=== PATIENT | female | born 1980 | race Caucasian/White ===

== ENCOUNTER 2017-11-30 21:05 | Observation (INO) | payer BC ==
--- NOTE | 2017-11-30 21:15 | ED Physician Documentation ---
PD HPI ABD PAIN - Stated complaint Stated Complaint: RLQ PX - Chief complaint Chief Complaint: Abd Pain - History obtained from History obtained from: Patient - History of Present Illness Timing - onset: Enter time (noon today), Today Timing - duration: Hours Timing - details: Gradual onset Pain level now: 5 Quality: Pain Location: RLQ Radiation: Other (no radiation) Improved by: Laying still Worsened by: Moving, Palpation Associated symptoms: Nausea, Dysuria (urinating exacerbates the RLQ pain). No: Fever, Vomiting, Diarrhea, Constipation Similar symptoms before: Has not had sx before Recently seen: Not recently seen - Additional information Additional information: c/o gradual onset generalized abdominal pain since shortly after eating lunch today. Pain has gradually worsened as well as become focused to RLQ Review of Systems Constitutional: reports: Reviewed and negative Eyes: reports: Reviewed and negative Ears: reports: Reviewed and negative Nose: reports: Reviewed and negative Throat: reports: Reviewed and negative Cardiac: reports: Reviewed and negative Respiratory: reports: Reviewed and negative GI: reports: Abdominal Pain, Nausea. denies: Vomiting, Constipation, Diarrhea : reports: Dysuria. denies: Frequency Skin: reports: Reviewed and negative Musculoskeletal: reports: Reviewed and negative Neurologic: reports: Reviewed and negative PD PAST MEDICAL HISTORY - Past Medical History Past Medical History: No - Past Surgical History Past Surgical History: Yes General: Cholecystectomy Other past surgical history: thoracic outlet surgery - Present Medications Home Medications: Ambulatory Orders Medication Instructions Recorded Confirmed No Known Home Medications [No 11/30/17 11/30/17 Known Home Medications] - Allergies Allergies/Adverse Reactions: Allergies Allergy/AdvReac Type Severity Reaction Status Date / Time minocycline Allergy Edema Verified 11/30/17 21:12 erythromycin base AdvReac Emesis Verified 11/30/17 21:12 - Living Situation Living Arrangement: reports: At home - Social History Does the pt smoke?: No PD ED PE NORMAL - Vitals Vital signs reviewed: Yes - General General: Alert and oriented X 3, No acute distress, Well developed/nourished - HEENT HEENT: Moist mucous membranes - Neck Neck: Supple, no meningeal sign - Cardiac Cardiac: RRR, No murmur - Respiratory Respiratory: No respiratory distress, Clear bilaterally - Abdomen Abdomen: Soft, Non distended, Other (RLQ tenderness, (+) Rovsing's sign) - Back Back: No CVA TTP - Derm Derm: Normal color, Warm and dry, No rash - Extremities Extremities: No edema Results - Vitals Vitals: Vital Signs - 24 hr 11/30/17 11/30/17 21:08 22:32 Temperature 37.1 C 37.2 C Heart Rate 99 87 Respiratory 20 16 Rate Blood Pressure 124/81 H 102/70 O2 Saturation 98 100 Oxygen O2 Source Room air - Labs Labs: Laboratory Tests 11/30/17 11/30/17 11/30/17 21:15 21:15 21:20 WBC 15.6 H RBC 4.94 Hgb 14.7 Hct 42.9 MCV 86.7 MCH 29.8 MCHC 34.3 RDW 12.6 Plt Count 303 MPV 8.6 Neut # (Auto) 12.0 H Lymph # (Auto) 2.5 [place] # (Auto) 1.0 Eos # (Auto) 0.1 Baso # (Auto) 0.1 Absolute Nucleated RBC 0.00 Nucleated RBC % 0.0 Sodium Potassium Chloride Carbon Dioxide Anion Gap BUN Creatinine Estimated GFR (MDRD) Glucose Calcium Total Bilirubin AST ALT Alkaline Phosphatase Total Protein Albumin Globulin Albumin/Globulin Ratio Lipase Urine Color LIGHT YELLOW Urine Clarity CLEAR Urine pH 6.0 Ur Specific [place] <=1.005 <=1.005 Urine Protein NEGATIVE Urine Glucose (UA) NEGATIVE Urine Ketones NEGATIVE Urine Occult Blood MODERATE H Urine Nitrite NEGATIVE Urine Bilirubin NEGATIVE Urine Urobilinogen 0.2 (NORMAL) Ur Leukocyte Esterase NEGATIVE Urine RBC 6-10 H Urine WBC 0-3 Ur Squamous Epith Cells MOD Squamous H Urine Bacteria Few Urine Starch PRESENT Ur Microscopic Review INDICATED Urine Culture Comments NOT INDICATED Urine HCG, Qual NEGATIVE 11/30/17 21:20 WBC RBC Hgb Hct MCV MCH MCHC RDW Plt Count MPV Neut # (Auto) Lymph # (Auto) [place] # (Auto) Eos # (Auto) Baso # (Auto) Absolute Nucleated RBC Nucleated RBC % Sodium 136 Potassium 3.5 Chloride 103 Carbon Dioxide 25 Anion Gap 8.0 BUN 11 Creatinine 0.7 Estimated GFR (MDRD) 95 Glucose 96 Calcium 9.3 Total Bilirubin 1.0 AST 15 ALT 11 Alkaline Phosphatase 45 Total Protein 7.7 Albumin 4.6 Globulin 3.1 Albumin/Globulin Ratio 1.5 Lipase 28 Urine Color Urine Clarity Urine pH Ur Specific [place] Urine Protein Urine Glucose (UA) Urine Ketones Urine Occult Blood Urine Nitrite Urine Bilirubin Urine Urobilinogen Ur Leukocyte Esterase Urine RBC Urine WBC Ur Squamous Epith Cells Urine Bacteria Urine Starch Ur Microscopic Review Urine Culture Comments Urine HCG, Qual - Rads (name of study) CT A/P Radiology: Prelim report reviewed, See rad report PD MEDICAL DECISION MAKING - ED course Complexity details: reviewed results, re-evaluated patient, considered differential, d/w patient - Sepsis Event Vital Signs: Vital Signs - 24 hr 11/30/17 11/30/17 21:08 22:32 Temperature 37.1 C 37.2 C Heart Rate 99 87 Respiratory 20 16 Rate Blood Pressure 124/81 H 102/70 O2 Saturation 98 100 Oxygen O2 Source Room air Departure - Departure Disposition: ED Place in Observation Clinical Impression: Appendicitis Condition: Good Discharge Date/Time: 11/30/17 23:57
[2017-11-30 21:30] LABS: BASOPHILS # (AUTO) 0.1 10^3/uL (0.0-0.1); BASOPHILS % (AUTO) 0.3 %; EOSINOPHILS # (AUTO) 0.1 10^3/uL (0.0-0.7); EOSINOPHILS % (AUTO) 0.4 %; HGB - HEMOGLOBIN 14.7 g/dL (12.0-16.0); LYMPHOCYTES # (AUTO) 2.5 10^3/uL (1.5-3.5); LYMPHOCYTES % (AUTO) 15.9 %; MEAN CORPUSCULAR HEMOGLOBIN 29.8 pg (27.0-31.0); MEAN CORPUSCULAR HGB CONC 34.3 g/dL (32.0-36.0); MEAN CORPUSCULAR VOLUME 86.7 fL (81.0-99.0); MEAN PLATELET VOLUME 8.6 fL (7.9-10.8); MONOCYTES % (AUTO) 6.4 %; PLT - PLATELET COUNT 303 10^3/uL (130-450); RED BLOOD COUNT 4.94 10^6/uL (4.20-5.40); RED CELL DISTRIBUTION WIDTH 12.6 % (12.0-15.0); WHITE BLOOD COUNT 15.6 x10^3/uL (4.8-10.8)
[2017-11-30 21:31] LABS: BILIRUBIN,URINE NEGATIVE (NEGATIVE); GLUCOSE, URINE (UA) NEGATIVE (NEGATIVE); KETONES,URINE (UA) NEGATIVE (NEGATIVE); LEUKOCYTE ESTERASE, URINE NEGATIVE (NEGATIVE); NITRITE,URINE NEGATIVE (NEGATIVE); OCCULT BLOOD,URINE MODERATE (NEGATIVE); PROTEIN,URINE NEGATIVE (NEGATIVE); UROBILINOGEN,URINE 0.2 (NORMAL) E.U./dL (NORMAL)
[2017-11-30 21:34] LABS: CLARITY,URINE CLEAR (CLEAR); HCG UR QUAL NEGATIVE
[2017-11-30 21:44] LABS: ALBUMIN 4.6 g/dL (3.2-5.5); ALBUMIN/GLOBULIN RATIO 1.5 (1.0-2.2); CALCIUM 9.3 mg/dL (8.5-10.3); CREATININE 0.7 mg/dL (0.4-1.0); TOTAL PROTEIN 7.7 g/dL (6.7-8.2)
[2017-11-30] MEDS ORDERED: IOPAMIDOL-300 100 ML VIAL ONE (21:46)
[2017-11-30 21:48] LABS: BACTERIA,URINE Few /HPF (None Seen); SQUAMOUS EPITHELIAL CELL,UR MOD Squamous (<= Few)
[2017-11-30 21:49] LABS: STARCH,URINE PRESENT
[2017-11-30] MEDS ORDERED: IOPAMIDOL-300 100 ML VIAL IVP ONE (22:11)
--- NOTE | 2017-11-30 22:37 | CT Report ---
Procedure Date: 11/30/2017 Accession Number: [id number] / [id number] Procedure: CT - Abdomen/Pelvis W/ CPT Code: FULL RESULT: EXAM: CT ABDOMEN AND PELVIS EXAM DATE: 11/30/2017 10:12 PM. CLINICAL HISTORY: RLQ pain. COMPARISONS: None. TECHNIQUE: Routine helical CT imaging was performed through the abdomen and pelvis. IV contrast: ISOVUE 300 100mL. Enteric contrast: No. Reconstructions: Coronal and sagittal. In accordance with CT protocol optimization, one or more of the following dose reduction techniques were utilized for this exam: automated exposure control, adjustment of mA and/or KV based on patient size, or use of iterative reconstructive technique. FINDINGS: Lung Bases: Unremarkable. Liver: Normal. No masses. Gallbladder/Bile Ducts: The gallbladder is surgically absent. Spleen: Normal. Pancreas: Normal. Adrenal Glands: Normal. Kidneys: Normal. No masses or hydronephrosis. Peritoneal Cavity/Bowel: Stomach, small bowel, and colon demonstrate no acute abnormalities. The appendix demonstrates borderline dilatation with a maximal diameter of 0.8 cm. The majority of the appendix is fluid-filled. There is suggestion of mural hyperemia. There is periappendiceal fat stranding. No enlarged mesenteric or retroperitoneal lymph nodes. Pelvic Organs: Intrauterine device in place. No acute pelvic organ abnormalities are seen. Vasculature: No aneurysms or other significant abnormality. Bones: No significant abnormality. Other: None. IMPRESSION: 1. The appendix demonstrates borderline dilatation with a maximal diameter 0.8 cm. The majority the appendix is fluid-filled. There is suggestion of mural hyperemia. There is periappendiceal fat stranding. Findings are suspicious for (although not clearly diagnostic of, given borderline diameter and presence of mid appendiceal air) acute appendicitis. 2. Otherwise negative contrast enhanced CT of the abdomen and pelvis. RADIA
[2017-11-30] MEDS ORDERED: ACETAMINOPHEN 1,000 MG/100 ML 100 ML IV STA (23:19)
[2017-11-30] MEDS ORDERED: HYDROmorphone 1 MG/ML CARPUJECT IVP PRN (23:20)
[2017-11-30] MEDS ORDERED: ONDANSETRON 4 MG/2 ML VIAL IVP PRN (23:20)
[2017-11-30] MEDS ORDERED: SODIUM CHLORIDE FLUSH 0.9% 10 ML SYRINGE IVP PRN (23:20)
--- NOTE | 2017-11-30 23:28 | CONSULTATION NOTE ---
Referring Provider Name of Referring Provider:: Shaun Holman MD Consult Date: 11/30/17 Chief Complaint - Chief Complaint Chief Complaint: RLQ pain History of Present Illness - Admitted From Admitted From:: [facility] ED - History Obtained From Records Reviewed: Yes History obtained from: Patient and chart Exam Limitations: None - History of Present Illness HPI Comment/Other: Rather classical history of less than 24 hour history of epigastric-abdominal discomfort localizing to RLQ and patient still with RLQ pain this AM. No fever or chills. No nausea or vomiting. No antecedent history of similar symptoms. History - Past Medical History Cardiovascular: reports: None Respiratory: reports: None Neuro: reports: None Endocrine/Autoimmune: reports: None GI: reports: None ELASTIC CUTTER: reports: None HEENT: reports: None Psych: reports: None Musculoskeletal: reports: None MRSA Hx?: No - Past Surgical History General: reports: Cholecystectomy Other past surgical history: thoracic outlet surgery - Family & Social History Living arrangement: At home - POLST Patient has POLST: No Meds/Allgy - Home Medications Home Medications: Ambulatory Orders Medication Instructions Recorded Confirmed No Known Home Medications [No 11/30/17 11/30/17 Known Home Medications] - Allergies Allergies/Adverse Reactions: Allergies Allergy/AdvReac Type Severity Reaction Status Date / Time minocycline Allergy Edema Verified 11/30/17 21:12 erythromycin base AdvReac Emesis Verified 11/30/17 21:12 Review of Systems - Cardiovascular Cariovascular: denies: Chest pain - Respiratory Respiratory: denies: SOB at rest - Gastrointestinal Gastrointestinal: reports: Abdominal pain. denies: Rectal bleeding, Black stools, Bloody stools, Nausea, Vomiting, Bile emesis Exam - Vital Signs Reviewed Vital Signs: Yes Vital Signs: Vital Signs x48h Temp Pulse Resp BP Pulse Ox 11/30/17 23:22 37.3 C 11/30/17 22:32 37.2 C 87 16 102/70 100 11/30/17 21:08 37.1 C 99 20 124/81 H 98 - Physical Exam General Appearance: positive: No acute distress (Evaluated in Room 3308.) Eyes Bilateral: positive: No lid inflammation, Conjunctivae nml, No scleral icterus ENT: positive: No signs of dehydration Neck: positive: Trachea midline Respiratory: positive: Chest non-tender Cardiovascular: positive: Regular rate & rhythm Abdomen: positive: Tenderness (RLQ) Skin: positive: Color nml Neurologic/Psychiatric: positive: Oriented x3 Conclusion/Plan - Diagnosis Diagnosis: Acute appendicitis - Plan Plan: Laparoscopic appendectomy, possible open appendectomy. - Lab Results Lab results reviewed: Yes Fish Bones: 12/01/17 05:00 12/01/17 05:00 - Diagnostic Imaging Results Diagnostic Imaging Results: positive: Final report reviewed
[2017-11-30] MEDS ORDERED: PIPERACILLIN/TAZOBACTAM 3.375 GM in SODIUM CHLORIDE 0.9% MINIBAG 100 ML IV SCH (23:45)
[2017-12-01] MEDS: ACETAMINOPHEN 1,000 MG/100 ML 100 ML IV SCH ×3 (00:28→12:40)
[2017-12-01] MEDS: D5NS W/20 MEQ KCL 1,000 ML IV SCH ×2 (00:36→14:51)
[2017-12-01] MEDS: SODIUM CHLORIDE FLUSH 0.9% 10 ML SYRINGE IVP SCH ×2 (00:37→08:46)
[2017-12-01 05:31] LABS: BASOPHILS % (AUTO) 0.2 %; EOSINOPHILS # (AUTO) 0.1 10^3/uL (0.0-0.7); EOSINOPHILS % (AUTO) 0.5 %; HGB - HEMOGLOBIN 13.7 g/dL (12.0-16.0); LYMPHOCYTES # (AUTO) 1.8 10^3/uL (1.5-3.5); LYMPHOCYTES % (AUTO) 16.7 %; MEAN CORPUSCULAR HEMOGLOBIN 30.8 pg (27.0-31.0); MEAN CORPUSCULAR HGB CONC 35.3 g/dL (32.0-36.0); MEAN CORPUSCULAR VOLUME 87.1 fL (81.0-99.0); MEAN PLATELET VOLUME 8.7 fL (7.9-10.8); MONOCYTES % (AUTO) 9.2 %; NEUTROPHILS # (AUTO) 7.8 10^3/uL (1.5-6.6); NEUTROPHILS % (AUTO) 73.4 %; PLT - PLATELET COUNT 249 10^3/uL (130-450); RED BLOOD COUNT 4.45 10^6/uL (4.20-5.40); RED CELL DISTRIBUTION WIDTH 12.6 % (12.0-15.0); WHITE BLOOD COUNT 10.6 x10^3/uL (4.8-10.8)
[2017-12-01 05:58] LABS: ALBUMIN 4.1 g/dL (3.2-5.5); ALBUMIN/GLOBULIN RATIO 1.6 (1.0-2.2); CREATININE 0.8 mg/dL (0.4-1.0); TOTAL PROTEIN 6.7 g/dL (6.7-8.2)
[2017-12-01 06:00] LABS: CALCIUM 8.4 mg/dL (8.5-10.3)
[2017-12-01] MEDS ORDERED: PIPERACILLIN/TAZOBACTAM 3.375 GM in SODIUM CHLORIDE 0.9% MINIBAG 100 ML IV SCH ×3 (08:00)
[2017-12-01] MEDS ORDERED: POLYETHYLENE GLYCOL 3350 17 GM PACKET PO SCH (09:00)
--- NOTE | 2017-12-01 09:19 | HISTORY & PHYSICAL EXAMINATION ---
Chief Complaint - Chief Complaint Chief Complaint: abdominal pain Abdominal Pain HPI - History of Present Illness HPI Comment/Other: This is a 37-year-old female who presents to the emergency department with a 1 day history of abdominal pain. She states that yesterday afternoon she had a ham sandwich and subsequently started developing crampy lower abdominal pain. This was progressively getting worse throughout the day. It was also associated with nausea. The pain then localized to the right lower quadrant. She subsequently went to the emergency department for evaluation. Lab studies were performed which demonstrated elevated white blood cell count of 15. CT scan of the abdomen was performed which demonstrated signs of probable early acute appendicitis. No rupture or abscess was visualized. Patient was admitted to the surgical service and started on antibiotics. This morning her white blood cell count has decreased from 15-10. She does continue to have right lower quadrant abdominal pain. She has remained afebrile overnight. PMH/PSH - Past Medical History Cardiovascular: positive: None Respiratory: positive: None Neuro: positive: None Endocrine/Autoimmune: positive: None GI: positive: None : positive: None HEENT: positive: None Psych: positive: None Musculoskeletal: positive: None Derm: positive: None MRSA Hx?: No - Past Surgical History General: positive: Cholecystectomy Cardiovascular: positive: Other Other past surgical history: thoracic outlet surgery Social & Family Hx - Social History Does the pt smoke?: No Smoking Status: Never smoker Does the pt drink ETOH?: Yes Does the pt have substance abuse?: No - POLST Patient has POLST: No Meds/Allgy - Home Medications Home Medications: Ambulatory Orders Medication Instructions Recorded Confirmed No Known Home Medications [No 11/30/17 11/30/17 Known Home Medications] - Allergies Allergies/Adverse Reactions: Allergies Allergy/AdvReac Type Severity Reaction Status Date / Time minocycline Allergy Edema Verified 11/30/17 21:12 erythromycin base AdvReac Emesis Verified 11/30/17 21:12 Exam - Vital Signs Reviewed Vital Signs: Yes Vital Signs: Vital Signs x48h Temp Pulse Resp BP Pulse Ox 12/01/17 08:19 36.8 C 77 18 112/67 97 12/01/17 04:20 36.8 C 73 18 118/66 98 - Physical Exam General Appearance: positive: No acute distress Respiratory: positive: No respiratory distress Cardiovascular: positive: Regular rate & rhythm Abdomen: positive: Other (soft, non-distended, mild tenderness to palpation in right lower quadrant) Extremities: positive: No pedal edema Neurologic/Psychiatric: positive: Oriented x3 Results - Lab Results Fish Bones: 12/01/17 05:00 12/01/17 05:00 Other Lab Results: Lab Results x24hrs 12/01/17 12/01/17 Range/Units 05:00 05:00 WBC 10.6 (4.8-10.8) x10^3/uL RBC 4.45 (4.20-5.40) 10^6/uL Hgb 13.7 (12.0-16.0) g/dL Hct 38.8 (37.0-47.0) % MCV 87.1 (81.0-99.0) fL MCH 30.8 (27.0-31.0) pg MCHC 35.3 (32.0-36.0) g/dL RDW 12.6 (12.0-15.0) % Plt Count 249 (130-450) 10^3/uL MPV 8.7 (7.9-10.8) fL Neut # (Auto) 7.8 H (1.5-6.6) 10^3/uL Lymph # (Auto) 1.8 (1.5-3.5) 10^3/uL [place] # (Auto) 1.0 (0.0-1.0) 10^3/uL Eos # (Auto) 0.1 (0.0-0.7) 10^3/uL Baso # (Auto) 0.0 (0.0-0.1) 10^3/uL Absolute Nucleated RBC 0.00 x10^3/uL Nucleated RBC % 0.0 /100WBC Sodium 139 (135-145) mmol/L Potassium 3.2 L (3.5-5.0) mmol/L Chloride 104 (101-111) mmol/L Carbon Dioxide 25 (21-32) mmol/L Anion Gap 10.0 (6-13) BUN 10 (6-20) mg/dL Creatinine 0.8 (0.4-1.0) mg/dL Estimated GFR (MDRD) 81 L (>89) Glucose 105 H (70-100) mg/dL Calcium 8.4 L (8.5-10.3) mg/dL Total Bilirubin 1.0 (0.2-1.0) mg/dL AST 13 (10-42) IU/L ALT 12 (10-60) IU/L Alkaline Phosphatase 41 L (42-121) IU/L Total Protein 6.7 (6.7-8.2) g/dL Albumin 4.1 (3.2-5.5) g/dL Globulin 2.6 (2.1-4.2) g/dL Albumin/Globulin Ratio 1.6 (1.0-2.2) Impression/Plan - Problem List Problem List: acute appendicitis Will proceed with laparoscopic appendectomy. The procedure was explained to the patient in detail including potential risks involved including but not limited to bleeding, infection and damage to intra-abdominal structures. She understands the with the above and agrees to proceed. She will be capped on IV antibiotics and remain n.p.o. until after the procedure.
[2017-12-01] MEDS ORDERED: BUPIVACAINE 0.5%-EPI 1:200000 PF 30 ML VIAL ONE (09:47)
[2017-12-01] MEDS ORDERED: LACTATED RINGERS 1,000 ML IV ONE (10:06)
[2017-12-01] MEDS ORDERED: ROCURONIUM 50 MG/5 ML VIAL IVP ONE (10:30)
[2017-12-01] MEDS ORDERED: ONDANSETRON 4 MG/2 ML VIAL IVP ONE (10:30)
[2017-12-01] MEDS ORDERED: BUPIVACAINE 0.5%-EPI 1:200000 PF 30 ML VIAL SUBQ ONE ×2 (10:30)
[2017-12-01] MEDS ORDERED: PROPOFOL 200 MG/20 ML VIAL IVP ONE (10:30)
[2017-12-01] MEDS ORDERED: KETOROLAC 30 MG/ML VIAL IVP ONE (10:30)
[2017-12-01] MEDS ORDERED: fentaNYL 100 MCG/2 ML VIAL IVP ONE (10:30)
[2017-12-01] MEDS ORDERED: LIDOCAINE-MPF 2% 5 ML VIAL IM ONE (10:30)
[2017-12-01] MEDS ORDERED: MIDAZOLAM 2 MG/2 ML VIAL IVP ONE (10:30)
[2017-12-01] MEDS ORDERED: ACETAMINOPHEN 1,000 MG/100 ML 100 ML IV ONE (11:31)
--- NOTE | 2017-12-01 11:34 | DISCHARGE SUMMARY ---
Discharge Summary Admit Date: 11/30/17 Discharge Date: 12/01/17 Condition at Discharge: Good - DIAGNOSES Admission Diagnoses: Acute appendicitis - HPI History of Present Illness: Mrs. Barton Is a 37-year-old female who was admitted to the hospital for 1 day history of abdominal pain. CT scan demonstrated probable acute appendicitis. She was admitted to the surgical service and started on antibiotics. - HOSPITAL COURSE Hospital Course: The patient was admitted to the surgical service and kept n.p.o. placed on antibiotics. She was subsequently taken to the operating room for laparoscopic appendectomy. She was noted to have uncomplicated nonperforated appendicitis. The procedure was performed uneventfully. She was subsequently recovered in the PACU and then sent to the floor.She was discharged home with instructions to follow-up in the surgical office in 2 weeks.She was provided with discharge instructions for wound care and activity restrictions. She is provided a prescription of Vicodin upon discharge. - ALLERGIES Allergies/Adverse Reactions: Allergies Allergy/AdvReac Type Severity Reaction Status Date / Time minocycline Allergy Edema Verified 11/30/17 21:12 erythromycin base AdvReac Emesis Verified 11/30/17 21:12 - MEDICATIONS Home Medications: Ambulatory Orders Medication Instructions Recorded Confirmed No Known Home Medications [No 11/30/17 11/30/17 Known Home Medications] - PHYSICAL EXAM AT DISCHARGE General Appearance: positive: No acute distress Respiratory: positive: No respiratory distress Cardiovascular: positive: Regular rate & rhythm Abdomen: positive: Non-tender, No distention Extremities: positive: No pedal edema Neurologic/Psychiatric: positive: Oriented x3 - LABS Result Diagrams: 12/01/17 05:00 12/01/17 05:00 - FOLLOW UP Follow Up: Dr. Finley 2 weeks - TIME SPENT Time Spent in Discharge (Minutes): 30
--- NOTE | 2017-12-01 11:51 | Discharge Plan ---
Discharge Plan Disposition: 01 Home, Self Care Condition: Good Diet: Regular Activity Restrictions: Additional Comments (no strenuous activity for 2 weeks) Shower Restrictions: Yes (no tub bathing for 1 week post op) Driving Restrictions: Yes (not while on narcotics) No Smoking: If you smoke, Please STOP! Call for help. Follow-up with: Shakir Lock MD [Primary Care Provider] - JENN BOLIVAR MD [Provider Admit Priv/Credential] - 2 Weeks
[2017-12-01] MEDS: HYDROmorphone 1 MG/ML CARPUJECT ONE ×2 (11:54→12:18)
--- NOTE | 2017-12-01 11:59 | OPERATIVE REPORT ---
Operative Report - General Admit Date: 11/30/17 Procedure Date: 12/01/17 - Procedure Note Primary Surgeon: Tushar - Other Other Information/Narrative: Preoperative diagnosis: Acute appendicitis Postoperative diagnosis: Same Anesthesia: General Surgeon: Dr. Finley Indication for procedure: Patient presents to the emergency department with CT scan findings of acute appendicitis. Findings: After obtaining informed consent the patient she was brought into the operating room position on the operating table in supine position taking noted pressure points. The patient was intubated by anesthesia. SCD boots were applied. Perioperative antibiotics were administered. The patient was subsequently prepped and draped in the usual sterile fashion and a timeout was taken according to protocol. A 1 cm incision was created at the umbilicus and deepened down to the umbilical stalk. This was grasped and elevated and using byrd technique the abdominal cavity was entered and insuflatted. A 5 mm incision was created in the left lateral abdominal wall and inserted under direct visualization. A second 5 mm incision was created in the suprapubic region and a 5 mm trocar inserted under direct visualization. The patient was then positioned with the right side up in Trendelenburg. The appendix was exposed and was noted to be inflamed. The mesoappendix was divided with the LigaSure device. The base of the appendix was then divided with the Endo LOBO 35 mm stapling device. The appendix was placed in a specimen bag and was removed through the umbilical port. The cecum and staple line were then inspected and hemostasis was noted to be achieved. The patient was then flattened and the umbilical port site was closed with a [id number] 0 Vicryl suture. The abdominal cavity was allowed to desufflate. 30 cc of local anesthetic was infiltrated. The incisions were then closed with 4-0 Monocryl. Dermabond was applied. The patient was subsequently extubated and taken to recovery room in stable condition. Estimated blood loss: 5 cc Specimen: Appendix Complications: None
[2017-12-01] MEDS ORDERED: HYDROcod/ACETAM 5/325 MG TABLET PO PRN (13:15)
[2017-12-01] MEDS ORDERED: IBUPROFEN 600 MG TABLET PO ONE (17:00)
[2017-12-01 17:36] VITALS: BP 105/60
== END 2017-12-01 17:45 | disposition home or self-care (01) ==
LOC: ED 21:05 → MS3 23:20
PROVIDERS: ADMIT Surgery; ATTEND Surgery
PROC: 0DTJ4ZZ Resection of Appendix, Percutaneous Endoscopic Approach (ICD-10-PCS; principal; 2017-12-01 12:00)
DX: K35.80 Unspecified acute appendicitis (principal)
CPT/HCPCS: 36415; 44970; 74177; 80053; 81001; 81025; 83690; 85025; 96365; 96366; 96375; 96376; 99217; 99218; 99283; 99284; A9270; J0131; J1170; J7120; Q9967; 81003; 87086; 88304; 96374